=== PATIENT | female | born 1985 | race Caucasian/White ===

== ENCOUNTER 2020-08-14 19:20 | Emergency (ER) | payer MEDICARE, MEDICAID ==
[2020-08-14] MEDS ORDERED: ACETAMINOPHEN 325 MG TABLET PO ONE (19:40)
--- NOTE | 2020-08-14 19:42 | ER Document Report ---
ED Medical Screen (RME) - General Chief Complaint: Vaginal Bleeding Stated Complaint: SPOTTING/21 WKS PREG Time Seen by Provider: 08/14/20 19:34 Primary Care Provider: JESSE LUI MD [Primary Care Provider] - Follow up as needed Mode of Arrival: Wheelchair Information source: Patient Notes: HPI; 34-year-old female who states she is approximately 19 weeks with twins presents to the emergency room complaining of back pain and spotting that started earlier today. Patient is high risk secondary to previous CVA and hypertension currently on aspirin. States she took Aleve without relief of her back pain. States she is followed by Dr. Kee and that her OB care is up-to-date. Unsure of when her last ultrasound was. PE: Alert and oriented x3. Mild distress noted. Lungs: Clear to auscultation without rales, rhonchi, wheezes. Heart: Tachycardic without murmurs, rubs, gallops. I have greeted and performed a rapid initial assessment of this patient. A comprehensive ED assessment and evaluation of the patient, analysis of test results and completion of the medical decision making process will be conducted by additional ED providers. I have specifically instructed the patient or family members with the patient to immediately return to any nursing staff should anything change in the patient's condition or with their chief complaint. TRAVEL OUTSIDE OF THE [place] IN LAST 30 DAYS: No Physical Exam - Vital signs Vitals: Temp Pulse Resp BP Pulse Ox 99.2 F 111 H 16 139/74 H 100 08/14/20 19:31 08/14/20 19:31 08/14/20 19:31 08/14/20 19:31 08/14/20 19:31 Course - Vital Signs Vital signs: Temp Pulse Resp BP Pulse Ox 99.2 F 111 H 16 139/74 H 100 08/14/20 19:31 08/14/20 19:31 08/14/20 19:31 08/14/20 19:31 08/14/20 19:31 Doctor's Discharge - Discharge Referrals: JESSE LUI MD [Primary Care Provider] - Follow up as needed
[2020-08-14] MEDS ORDERED: MORPHINE SULFATE 10 MG/ML INJ IV ONE (20:42)
--- NOTE | 2020-08-14 20:46 | ER Document Report ---
ED General - General Chief Complaint: OB Problem (<20wks) Stated Complaint: SPOTTING/21 WKS PREG Time Seen by Provider: 08/14/20 19:34 Primary Care Provider: JESSE LUI MD [CONSULTING STAFF] - Follow up as needed Mode of Arrival: Wheelchair TRAVEL OUTSIDE OF THE [place] IN LAST 30 DAYS: No - HPI Notes: Patient is a G6, P3 female at approximately 19 weeks with a twin gestation who presents to the emergency department for evaluation of pain in her right back and vaginal bleeding. The patient states that over the last several days she has had pain in her lower back. It radiates around into her abdomen, also into her hip and right thigh. She has a history of kidney stones, states that the pain is lower, does not feel the same as her history of stones. She states that today she developed "pink" vaginal bleeding." She states is really only when she wipes after urinating. She states the pain is currently a 4 out of 5. Nothing seems to make it better. Sometimes walking makes it worse. She states she has been taking her medications as prescribed. She has had no fevers or chills. No nausea or vomiting. She is unsure of her blood type. She follows with Dr. Kee for high risk . - Related Data Allergies/Adverse Reactions: ciprofloxacin [From Cipro] Allergy (Verified 08/14/20 19:51) ketorolac [From Toradol] Allergy (Verified 08/14/20 19:51) sulfamethoxazole [From Bactrim] Allergy (Verified 08/14/20 19:51) trimethoprim [From Bactrim] Allergy (Verified 08/14/20 19:51) Past Medical History - General Information source: Patient - Social History Smoking Status: Current Every Day Smoker Chew tobacco use (# tins/day): No Frequency of alcohol use: None Drug Abuse: None Family History: Reviewed & Not Pertinent Patient has homicidal ideation: No - Past Medical History Cardiac Medical History: Reports: Hx Congestive Heart Failure - cardiomyopathy Neurological Medical History: Reports: Hx Cerebrovascular Accident Renal/ Medical History: Reports: Hx Kidney Stones Past Surgical History: Reports: Other - "Brain surgery" x2 Review of Systems - Review of Systems Constitutional: No symptoms reported EENT: No symptoms reported Cardiovascular: No symptoms reported Respiratory: No symptoms reported Gastrointestinal: No symptoms reported Genitourinary: No symptoms reported Female Genitourinary: See HPI Musculoskeletal: See HPI Skin: No symptoms reported Neurological/Psychological: No symptoms reported Physical Exam - Vital signs Vitals: Temp Pulse Resp BP Pulse Ox 99.2 F 111 H 16 139/74 H 100 08/14/20 19:31 08/14/20 19:31 08/14/20 19:31 08/14/20 19:31 08/14/20 19:31 - Notes Notes: Vital signs reviewed, please refer to chart. Head is normocephalic, atraumatic. Pupils equal round, reactive to light. Neck is supple without meningismus. Heart is regular rate and rhythm. Lungs are clear to auscultation bilaterally. Abdomen is gravid, nontender, normoactive bowel sounds throughout. Examination of spine yields a midline tenderness step-off. She has paraspinal musculature tenderness noted throughout the lumbar spine with associated spasm. Extremities without cyanosis, clubbing. Posterior calves are nontender. Peripheral pulses are equal. Skin is warm and dry. Patient is awake, alert, neurological exam is nonfocal. Course - Re-evaluation Re-evalutation: 08/14/20 20:46 Patient presents emergency department for evaluation of low back pain with abdominal cramping and vaginal bleeding. Laboratory investigations and imaging as ordered through triage. She was given Tylenol, states she had no relief. I will get an order low-dose morphine. I did have a strong concern for the possibility of renal colic as etiology, as the patient really has not had any nausea, states it feels dissimilar to her stones in the past. Pending blood work and ultrasound. Patient is currently stable, we will continue to monitor. 08/14/20 22:34 Patient feeling improved. Ultrasound shows closed cervix, normal heart rate in both twins. No clear source of bleeding. Patient has not had any further bleeding. Awaiting full RhoGam work-up, but patient states she knows in fact she is Rh- and will require it. Her labs are consistent with some dehydration, IV fluids are ordered. Will likely discharge patient after RhoGam administration. 08/14/20 23:37 RhoGam indicated, I spoke with the blood bank and she will be prepared. Patient will be discharged to follow-up with her [facility]. She is to return to the ED wi th worsening. - Vital Signs Vital signs: Temp Pulse Resp BP Pulse Ox 97.6 F 98 14 129/63 H 99 08/14/20 23:20 08/14/20 23:20 08/14/20 23:20 08/14/20 23:20 08/14/20 23:20 - Laboratory Result Diagrams: 08/14/20 21:00 08/14/20 21:00 Laboratory results interpreted by me: 08/14/20 08/14/20 08/14/20 21:00 21:00 22:03 WBC 14.3 H RBC 3.49 L Hgb 10.8 L Hct 30.3 L RDW 14.3 H Absolute Neuts (auto) 11.1 H Sodium 135.0 L Carbon Dioxide 17 L Creatinine 0.46 L Glucose 122 H Urine Protein 100 H Urine Blood SMALL H Urine Bilirubin SMALL H Urine Urobilinogen 2.0 H - Diagnostic Test Radiology reviewed: Reports reviewed Radiology results interpreted by me: 08/14/20 22:36 Obstetrics Ultrasound 08/14/20 19:39 IMPRESSION: 1. Closed cervix measuring up to 3.9 cm. 2. Twin A: vertex position, heart rate 150 bpm, posterior placenta. LVP: 3.3 x 2.0 cm 3. Twin B: Breech position, heart rate 144 bpm, anterior placenta. LVP: 4.0 x 6.2 cm Technologist notes presence of vernix within the amniotic fluid. Attention on follow-up is recommended as clinically indicated. Discharge - Discharge Clinical Impression: Vaginal bleeding during Condition: Stable Disposition: HOME, SELF-CARE Instructions: Bleeding During Early ([facility]) Additional Instructions: You have been given IV fluids and RhoGam. Please follow-up with your [facility] this week. If you develop increased pain, bleeding, vomiting, fevers, or any other new or concerning symptoms, please return immediately to the ER for further evaluation. Referrals: JESSE LUI MD [CONSULTING STAFF] - Follow up as needed
[2020-08-14 21:13] LABS: ABSOLUTE BASOPHILS # (AUTO) 0.1 10^3/uL (0.0-0.2); ABSOLUTE EOSINOPHILS # (AUTO) 0.3 10^3/uL (0.0-0.6); ABSOLUTE LYMPHOCYTES (AUTO) 1.9 10^3/uL (0.5-4.7); ABSOLUTE MONOCYTES (AUTO) 0.9 10^3/uL (0.1-1.4); ABSOLUTE NEUT (AUTO) 11.1 10^3/uL (1.7-8.2); BASOPHILS % (AUTO) 0.5 % (0-2); EOSINOPHILS % (AUTO) 2.3 % (0-6); HEMATOCRIT 30.3 % (36.0-47.0); HEMOGLOBIN 10.8 g/dL (12.0-15.5); LYMPHOCYTES % (AUTO) 13.5 % (13-45); MEAN CORPUSCULAR HEMOGLOBIN 31.1 pg (27.0-33.4); MEAN CORPUSCULAR HGB CONC 35.8 g/dL (32.0-36.0); MEAN CORPUSCULAR VOLUME 87 fl (80-97); MONOCYTES % (AUTO) 6.2 % (3-13); PLATELET COUNT 216 10^3/uL (150-450); RED BLOOD COUNT 3.49 10^6/uL (3.72-5.28); RED CELL DISTRIBUTION WIDTH 14.3 % (11.5-14.0); SEGMENTED NEUTROPHILS % (AUTO) 77.5 % (42-78); TOTAL CELLS COUNTED % (AUTO) 100 %; WHITE BLOOD COUNT 14.3 10^3/uL (4.0-10.5)
[2020-08-14 21:32] LABS: ALBUMIN 3.7 g/dL (3.5-5.0); ALKALINE PHOSPHATASE 61 U/L (38-126); ANION GAP 11 (5-19); ASPARTATE AMINO TRANSFERASE 15 U/L (14-36); BILIRUBIN,DIRECT 0.2 mg/dL (0.0-0.4); BILIRUBIN,TOTAL 0.5 mg/dL (0.2-1.3); BLOOD UREA NITROGEN 10 mg/dL (7-20); CALCIUM 9.3 mg/dL (8.4-10.2); CARBON DIOXIDE 17 mmol/L (22-30); CHLORIDE 107 mmol/L (98-107); GLUCOSE 122 mg/dL (75-110); POTASSIUM 4.2 mmol/L (3.6-5.0); TOTAL PROTEIN 6.4 g/dL (6.3-8.2)
--- NOTE | 2020-08-14 22:20 | RADIOLOGY REPORT (SQ) ---
EXAM DESCRIPTION: ULTRASOUND OBSTETRICS LIMITED CLINICAL HISTORY: Bleeding COMPARISON: None available TECHNIQUE: Ultrasound images of the pelvis were acquired. FINDINGS: There are two live intrauterine pregnancies. Maternal cervix appears closed and measures up to 3.9 cm in length. Twin A: The fetus is in vertex position. A heart rate of 150 beats/minute is noted. Motion is not discretely documented by technologist. Expected age by ultrasound is 19 weeks six days. The placenta is posterior in position. LVP: 3.3 x 2.0 cm Examination is not performed for the purposes of anatomy assessment. Twin B: The fetus is in breech position. A heart rate of 144 beats/minute is noted. Motion is not discretely documented by technologist. Expected age by ultrasound is 18 weeks six days. The placenta is anterior in position. LVP: 4.0 x 6.2 cm. Technologist notes presence of vernix within the amniotic fluid. Examination is not performed for the purposes of anatomy assessment. IMPRESSION: 1. Closed cervix measuring up to 3.9 cm. 2. Twin A: vertex position, heart rate 150 bpm, posterior placenta. LVP: 3.3 x 2.0 cm 3. Twin B: Breech position, heart rate 144 bpm, anterior placenta. LVP: 4.0 x 6.2 cm Technologist notes presence of vernix within the amniotic fluid. Attention on follow-up is recommended as clinically indicated.
[2020-08-14 22:21] LABS: APPEARANCE,URINE CLOUDY; BILIRUBIN,URINE SMALL (NEGATIVE); CALCIUM OXALATE CRYSTALS,URINE TOO NUMEROUS TO CNT /HPF; GLUCOSE, URINE NEGATIVE (NEGATIVE); KETONES,URINE NEGATIVE (NEGATIVE); LEUKOCYTE ESTERASE,URINE NEGATIVE (NEGATIVE); NITRITE,URINE NEGATIVE (NEGATIVE); PROTEIN,URINE 100 mg/dL (NEGATIVE)
[2020-08-14 22:22] LABS: COLOR,URINE YELLOW
[2020-08-14] MEDS: NORMAL SALINE 1000 ML 1,000 ML IV ONE ×2 (22:37→23:07)
[2020-08-15 00:39] VITALS: BP 130/97
== END 2020-08-15 00:40 | disposition home or self-care (01) ==
LOC: ER 19:20
DX: O46.90 Antepartum hemorrhage, unspecified, unspecified trimester (principal); O99.891 Other specified diseases and conditions complicating pregnancy; M62.830 Muscle spasm of back; M54.5 Low back pain; O26.899 Other specified pregnancy related conditions, unspecified trimester; R10.9 Unspecified abdominal pain; O99.330 Smoking (tobacco) complicating pregnancy, unspecified trimester; F17.200 Nicotine dependence, unspecified, uncomplicated; O30.009 Twin pregnancy, unspecified number of placenta and unspecified number of amniotic sacs, unspecified trimester; Z67.91 Unspecified blood type, Rh negative; Z87.442 Personal history of urinary calculi; Z3A.00 Weeks of gestation of pregnancy not specified; Z88.1 Allergy status to other antibiotic agents; Z88.8 Allergy status to other drugs, medicaments and biological substances
CPT/HCPCS: 99285; 96361; 96374; 86900; 86901; 36415; 86850; 85025; 80053; 81001; 76815; J2790; A9270; J2270; J7030